=== PATIENT | male | born 1970 | race Caucasian/White ===

== ENCOUNTER 2020-11-28 08:10 | Inpatient (IN) | payer OTHER ==
[~2020-11-28] VITALS: Ht 186.7 cm; Wt 76.0 kg
[~2020-11-28 08:10] MED LIST: BACITRACIN 50,000 UNIT ONE; BUPIVACAINE/PF 0.5% ONE; DULO30CA2 PO; EPHEDRINE 50 MG/ML, 1ML IVPush PRN; EPINEPHRINE 1 MG/ML, 1ML ONE; LABETALOL 5MG/ML, 20ML IV PRN; ONDANSETRON 2MG/ML, 2ML IVPush PRN; OXYcodone 5 MG/5 ML ORAL.SOL UDC PO PRN; PROMETHAZINE 25 MG/ML, 1ML IVPush PRN; THROMBIN 20,000 UNIT VIAL TP ONE; hydrALAzine 20 MG/ML, 1ML IV PRN
[2020-11-28] MEDS ORDERED: CLON0.5T PO (08:43)
[2020-11-28] MEDS ORDERED: FENTANYL PF 250 MCG/5ML ONE (08:51)
[2020-11-28] MEDS ORDERED: MIDAZOLAM 1 MG/ML, 2ML ONE (08:51)
[2020-11-28] MEDS ORDERED: CHLORHEXIDINE 15 ML UDC ONE (08:57)
[2020-11-28] MEDS ORDERED: LACTATED RINGERS 1,000 ML IV SCH (09:00)
[2020-11-28] MEDS ORDERED: ACETAMINOPHEN 500 MG TABLET PO ONE (09:00)
[2020-11-28] MEDS ORDERED: CHLORHEXIDINE 15 ML UDC PO ONE (09:00)
[2020-11-28] MEDS ORDERED: LIDOCAINE-MPF 2% ,5ML ONE (10:07)
[2020-11-28] MEDS ORDERED: CEFAZOLIN 1,000 MG ONE (10:07)
[2020-11-28] MEDS ORDERED: SUCCINYLCHOLINE 20 MG/ML, 10ML ONE (10:07)
[2020-11-28] MEDS ORDERED: DEXAMETHASONE 4 MG/ML, 1ML ONE (10:07)
[2020-11-28] MEDS ORDERED: PROPOFOL 10 MG/ML, 20ML ONE (10:07)
[2020-11-28] MEDS ORDERED: PHENYLEPHRINE 10 MG/ML ONE (10:07)
[2020-11-28] MEDS ORDERED: ONDANSETRON 2MG/ML, 2ML ONE (10:07)
[2020-11-28] MEDS ORDERED: PROPOFOL 50 ML ONE ×2 (10:52→14:10)
[2020-11-28] MEDS ORDERED: HYDROmorphone 1 MG/ML, 1ML INJ ONE ×2 (11:14→12:13)
[2020-11-28] MEDS ORDERED: FENTANYL PF 100 MCG/2ML ONE ×2 (12:10→12:26)
[2020-11-28] MEDS ORDERED: OXYcodone 5 MG/5 ML ORAL.SOL UDC ONE (12:13)
[2020-11-28] MEDS: FENTANYL PF 100 MCG/2ML IV PRN ×3 (12:16→12:31)
[2020-11-28] MEDS: HYDROmorphone 1 MG/ML, 1ML INJ IVPush PRN ×2 (12:24→12:29)
[2020-11-28] MEDS ORDERED: METHOCARBAMOL 1,000 MG in DEXTROSE 5% 100 ML IV ONE (13:00)
[2020-11-28 13:51] VITALS: BP 120/78
[2020-11-28] MEDS ORDERED: DEXAMETHASONE 4 MG/ML, 1ML IV PRN (14:30)
[2020-11-28] MEDS ORDERED: HYDROcodone/APAP 5/325 TABLET PO PRN (14:30)
[2020-11-28] MEDS ORDERED: morphine SULFATE 10 MG/ML, 1ML IV PRN (14:30)
[2020-11-28] MEDS ORDERED: BISACODYL 10 MG SUPP PR PRN (14:30)
[2020-11-28] MEDS ORDERED: DIAZEPAM 5 MG TABLET PO PRN (14:30)
[2020-11-28] MEDS ORDERED: SODIUM CHLORIDE 0.9% 1,000ML IV PRN (14:30)
[2020-11-28] MEDS ORDERED: DIAZEPAM 5 MG/ML, 2ML IV PRN (14:30)
[2020-11-28] MEDS ORDERED: MAGNESIUM HYDROXIDE 8%, 30ML UDC PO PRN (14:30)
[2020-11-28] MEDS ORDERED: PROMETHAZINE 25 MG/ML, 1ML IM PRN (14:30)
[2020-11-28] MEDS ORDERED: DIPHENHYDRAMINE 50 MG/ML, 1ML IVPush PRN (14:30)
[2020-11-28] MEDS ORDERED: morphine SULFATE 10 MG/ML, 1ML IVPush ONE (15:00)
[2020-11-28] MEDS: NS + 20MEQ KCL 1,000 ML IV SCH (15:50)
[2020-11-28] MEDS: CEFAZOLIN PMX 1GM/50ML 50 ML IVPB SCH (17:01)
[2020-11-28 18:59] VITALS: BP 117/77
[2020-11-28] MEDS: ONDANSETRON 2MG/ML, 2ML IV PRN (19:50)
[2020-11-28] MEDS ORDERED: ZOLPIDEM 5MG TABLET PO PRN (21:00)
[2020-11-28] MEDS: METHOCARBAMOL 750 MG in DEXTROSE 5% 100 ML IV SCH (22:00)
[2020-11-29 00:11] VITALS: BP 111/69
[2020-11-29] MEDS: CEFAZOLIN PMX 1GM/50ML 50 ML IVPB SCH ×2 (00:58→09:13)
[2020-11-29] MEDS: ONDANSETRON 2MG/ML, 2ML IV PRN (02:27)
[2020-11-29] MEDS: NS + 20MEQ KCL 1,000 ML IV SCH (02:27)
[2020-11-29 04:00] VITALS: BP 106/62
[2020-11-29] MEDS: METHOCARBAMOL 750 MG in DEXTROSE 5% 100 ML IV SCH (05:28)
[2020-11-29 07:39] VITALS: BP 110/73
[2020-11-29] MEDS ORDERED: SENNA/DOCUSATE TABLET PO SCH (09:00)
[2020-11-29] MEDS ORDERED: HYDR-2214 PO (09:37)
[2020-11-29] MEDS ORDERED: METH4TAB2 PO (09:37)
[2020-11-29] MEDS ORDERED: METH-640 PO (09:37)
[2020-11-30] MEDS ORDERED: METHOCARBAMOL 750 MG TABLET PO SCH (21:00)
== END 2020-11-29 12:15 | disposition home or self-care (01) | DRG 472 ==
LOC: ORIP 08:10 → 4NE 13:24 → DCLOUNGE 11-29 12:04
PROVIDERS: ADMIT Neurological Surgery; ATTEND Neurological Surgery
PROC: 0RB30ZZ Excision of Cervical Vertebral Disc, Open Approach (ICD-10-PCS; 2020-11-28)
PROC: 01N10ZZ Release Cervical Nerve, Open Approach (ICD-10-PCS; 2020-11-28)
PROC: 4A11X4G Monitoring of Peripheral Nervous Electrical Activity, Intraoperative, External Approach (ICD-10-PCS; 2020-11-28)
PROC: 0RG20A0 Fusion of 2 or more Cervical Vertebral Joints with Interbody Fusion Device, Anterior Approach, Anterior Column, Open Approach (ICD-10-PCS; principal; 2020-11-28 10:00)
DX: M48.02 Spinal stenosis, cervical region (principal); M50.00 Cervical disc disorder with myelopathy, unspecified cervical region; F17.210 Nicotine dependence, cigarettes, uncomplicated; Z88.8 Allergy status to other drugs, medicaments and biological substances
CPT/HCPCS: 36415; 72040; J3490; S0020; 86850; 86900; 95938; 95941; C1713; C1776; G0378; J0171; J0690; J1100; J1170; J2250; J2270; J2405; J2704; J3010; J3480; C1762; J0330; J2370; J2800; J7120